=== PATIENT | male | born 1960 | race Caucasian/White ===

== ENCOUNTER → 2017-01-21 | Day surgery (SDC) | payer MEDICARE, OTHER ==
[~2017-01-21] MED LIST: DIAZEPAM PO; HYDROCHLOROTH12.5 M1 PO; LORTAB 10/500 T1 TAB PO; METHADONE HCL10 MG; METHADONE HCL10 MG PO; METHADONE PO; OXYCODONE HCL15 MG PO; ZANTAC PO
--- NOTE | ~2017-01-21 | OR ---
Unit #: [id number] #: [id number] Patient: YOUSIF ARREOLA [id number] [address] [place], [place] [address] [id number] O MR#: [id number] NAME: YOUSIF ARREOLA. ROOM: Date of Procedure: 01/21/2017 Admission Date: 01/21/2017 Surgeon: Luis Alfredo Davidson M.D. : 1960 Attending Physician: Luis Alfredo Davidson M.D. Referring Physician: Luis Alfredo Davidson M.D. Primary Care Physician: Hardeep Ariza M.D. OPERATIVE REPORT PREOPERATIVE DIAGNOSES 1. Postlumbar fusion. 2. Degenerative lumbar disk disease. 3. Back pain. 4. Radiculopathy. POSTOPERATIVE DIAGNOSES 1. Postlumbar fusion. 2. Degenerative lumbar disk disease. 3. Back pain. 4. Radiculopathy. PROCEDURE PERFORMED Lumbar epidural steroid injection with intravenous sedation and fluoroscopic guidance for needle localization. INDICATIONS FOR PROCEDURE This is a 56-year-old female with return of back and left greater than right lower extremity pain due to adjacent level disease above her prior lumbar fusion. The patient has failed several conservative measures, so plan is for trial of epidural steroids. Risks and benefits of all which have been reviewed. DESCRIPTION OF PROCEDURE The patient was placed in a seated position. Standard monitors were applied. 4 mg of Versed were given for sedation and anxiolysis, which were adequate. Vital signs remained stable. Sterile prep and drape then of the lumbar area was performed. The skin then at the L3-L4 level was localized with 1% lidocaine. An 18-gauge [employer] needle was then advanced via loss of resistance technique and fluoroscopic guidance in toward the epidural space. The patient did not complain of any pain or paresthesia during needle advancement. After confirming proper positioning with fluoroscopy and radiographic contrast, 80 mg of Depo-Medrol and 4 mL of 0.125% bupivacaine were deposited. The patient tolerated the procedure otherwise well. Of note, we were unable to obtain any IV access in this patient using conventional measures. Dr. Mancini of anesthesia was consulted. He was able to start IV after quite a bit of difficulty using ultrasonic guidance. Dictated by... Unit #: [id number] #: [id number] Patient: YOUSIF ARREOLA Kimmy Davidson M.D. LHP/cathleen TD: 01/22/2017 07:43 JOB #: [id number] OPERATIVE REPORT X Luis Alfredo Davidson MD X PROCEDURE OPERATIVE NOTE
== END | disposition home or self-care (01) ==
LOC: CCSC 09:30
DX: M51.16 Intervertebral disc disorders with radiculopathy, lumbar region (principal); Z98.1 Arthrodesis status
CPT/HCPCS: J1040; J2250

== ENCOUNTER → 2017-02-18 | Day surgery (SDC) | payer MEDICARE, OTHER ==
--- NOTE | ~2017-02-18 | OR ---
Unit #: [id number] #: [id number] Patient: YOUSIF ARREOLA [id number] [address] [address] [id number] O MR#: [id number] NAME: YOUSIF ARREOLA ROOM: Date of Procedure: 02/18/2017 Admission Date: 02/18/2017 Surgeon: Luis Alfredo Davidson M.D. : 1960 Attending Physician: Luis Alfredo Davidson M.D. OPERATIVE REPORT JOB NOTE: CC: [facility] PREOPERATIVE DIAGNOSES Back pain, radiculopathy, postlumbar fusion, degenerative lumbar disk disease. POSTOPERATIVE DIAGNOSES Back pain, radiculopathy, postlumbar fusion, degenerative lumbar disk disease. PROCEDURE PERFORMED Lumbar epidural steroid injection. INDICATIONS FOR PROCEDURE The patient is a 56-year-old male with previously mentioned diagnosis. Epidural steroid injection done 4 weeks ago resulted in decrease in his back pain, mild decrease in his leg pains. Based on his good partial response, we are going to proceed with a repeat epidural steroid injection today. DESCRIPTION OF PROCEDURE The patient was placed in a seated position. Standard monitors were applied. 4 mg of Versed were given for sedation and anxiolysis, which were adequate. Vital signs remained stable. Sterile prep and drape then of lumbar area was performed. The skin then at the L2-L3 level was localized with 1% lidocaine. An 18-gauge [employer] needle was then advanced via loss of resistance technique and fluoroscopic guidance in toward the epidural space. After confirming proper positioning with fluoroscopy and radiographic contrast, 80 mg of Depo-Medrol and 4 mL of 0.125% bupivacaine were deposited. The patient tolerated the procedure well and was discharged to the recovery room in stable condition. Dictated by... Luis Alfredo Davidson M.D. LHP/markl TD: 02/19/2017 01:10 JOB #: [id number] Unit #: [id number] #: [id number] Patient: YOUSIF ARREOLA OPERATIVE REPORT Page 1 of 1 X Luis Alfredo Davidson MD X PROCEDURE OPERATIVE NOTE
== END | disposition home or self-care (01) ==
LOC: CCSC 09:52
DX: M51.16 Intervertebral disc disorders with radiculopathy, lumbar region (principal); Z98.1 Arthrodesis status
CPT/HCPCS: J1040; J2250